=== PATIENT | male | born 1980 | race Caucasian/White ===

== ENCOUNTER 2023-12-11 09:37 | Day surgery (SDC) | payer BC, SELFPAY ==
[2023-12-11 09:42] VITALS: BP 141/93; PULSE 68; RESP 18; TEMP 36.4; O2SAT 100
[2023-12-11] MEDS: Lactated Ringers 1,000 ML 80 ML IV (09:56)
--- NOTE | 2023-12-11 10:02 | W.ANESPRE ---
General Info Date of Service Date Performed: 12/11/23 Height: 5 ft 11 in Weight: 108.3 kg Body Mass Index (BMI): 33.3 Surgical Procedure: Operation Date: 12/11/23 11:50 Proposed Procedure Side Surgeon pooja Rose MD Meds Allergies and Home Medications Allergies Allergy/AdvReac Type Severity Reaction Status Date / Time bupropion Allergy Intermediate severe Verified 12/05/23 07:45 emotional lability Home Medication Medication Instructions Recorded bisacodyl 5 mg tablet,delayed 5 mg PO ONCE #4 tabs 12/06/23 release (Dulcolax (bisacodyl)) polyethylene glycol 3350 17 17 g PO ONCE #238 grams 12/06/23 gram/dose oral powder ibuprofen 200 mg tablet (Advil) 600 mg PO Q6H 12/10/23 magnesium 100 mg capsule 100 mg PO DAILY 12/10/23 melatonin 1 mg tablet 1 mg PO DAILY 12/10/23 multivitamin (Daily Value tablet) 1 tab PO DAILY 12/10/23 Current Visit Medications: Current Medications Generic Name Dose Route Start Last Admin Trade Name Freq PRN Reason Stop Dose Admin Ringer's Solution 1,000 mls @ 80 mls/hr 12/11/23 06:00 12/11/23 09:56 IV 01/09/24 23:59 80 mls/hr INFUSION GIOVANNI Administration IV Miscellaneous Supplies 1 each 12/11/23 06:00 Iv Access IV 01/09/24 23:59 DIRECTED GIOVANNI Sodium Chloride 0 ml 12/11/23 06:00 Normal Saline Flush 10 Ml Syr IV 01/09/24 23:59 PRN PRN Sodium Chloride 0 ml 12/11/23 06:00 Normal Saline 10 Ml Vial IJ 01/09/24 23:59 DIRECTED PRN Sterile Water 0 ml 12/11/23 06:00 Water,Injection,Sterile 10 Ml Vial IJ 01/09/24 23:59 DIRECTED PRN PFSH Active Problems Active Problems: Problem Status Onset Code Erectile dysfunction N52.9 Medical History Medical History Fracture of arm Left arm Low back pain Surgical History Surgical History Hx laparoscopic cholecystectomy Tobacco Smoking/Tobacco Use Status: Former Tobacco Use Alcohol Alcohol Intake: current Alcohol intake frequency: a few times a month Substance Use Substance use: Never Substance use type: does not use Vital Signs and Lab Results Vital Signs Most Recent Vital Signs in EMR: Most Recent Vital Signs Temp Pulse Resp BP Pulse Ox 36.4 C L 68 18 141/93 H 100 12/11/23 09:42 12/11/23 09:42 12/11/23 09:42 12/11/23 09:42 12/11/23 09:42 Lab Results Blood Type / Crossmatch: No Data to Display Complete Blood Count: No Data to Display Complete Metabolic Panel: No Data to Display Liver Function Panel: No Data to Display Coagulation Panel: No Data to Display Cardiac Panel: No Data to Display Arterial Blood Gas: No Data to Display Venous Blood Gas: No Data to Display Pancreas Panel: No Data to Display Thyroid Panel: No Data to Display Infectious Disease: No Data to Display Blood Cultures: No Data to Display Toxicology Panel: No Data to Display Anesthesia Assessment and Plan Anesthesia History Personal History: No History of Anesthesia Complications Family History: No Family History of Anesthesia Complications Exercise Tolerance Exercise Tolerance: Metabolic Equivalents>4 Pertinent Negatives Pertinent Negatives: No Symptoms of GERD Cardiac & Pulmonary Exam Cardiac Exam: Normal S1/S2 Heart Sounds Pulmonary Exam: Clear Bilateral Breath Sounds Implantable Cardiac Device Does patient have a Pacemaker or an ICD?: No Airway Exam Known Difficult Airway: No Mallampati Class: 2 Mouth Opening: Normal (> 3cm) Thyromental Distance: Greater than 3 cm Neck Range of Motion: Full ROM Neck Circumference: Normal Teeth Condition: Normal Dentition ASA Classification ASA Score: ASA 2 Emergency Case?: No NPO Status NPO Status: NPO Clears >2 hours, Solids >8 hours Anesthesia Plan Resuscitation Status: Full Code Anesthesia Technique: General Anesthesia Airway Planned: Natural Airway Monitors Used: Standard Monitors
[2023-12-11 10:03] VITALS: BMI 33.3
--- NOTE | 2023-12-11 11:04 | BOWEL_PTH ---
PATIENT: John Nobles LOC: [facility] U#:[id number] AGE/SX: 43/M ROOM: RE12/11/[address]: Jarrod Rose : 1980 BED: DIS: 12/11/2023 SPEC #: [id number] RECD: 12/11/23 11:37 STATUS: BRIAN RE #: [id number] KENNEY: 12/11/23 11:[address]: Jarrod Rose DEPT: Surgical Specimen RECD BY: Jessie Gonzáles ENTERED: 12/11/23 11:37 SP TYPE: Bowel OTHR DR: Donald Toscano Tissues: 1 - BIOPSY BOWEL 2 - BIOPSY BOWEL Procedures: GROSS AND MICRO LEVEL 4 Comments: [id number]
[2023-12-11 11:11] VITALS: BP 106/69; PULSE 64; RESP 16; TEMP 36.5; O2SAT 96
--- NOTE | 2023-12-11 11:14 | W.ANESPOSTOP ---
Postoperative Evaluation Date, Time and Location Date Performed: 12/11/23 Time Performed: 11:14 Patient Location: Day Surgery Unit Vital Signs Most Recent Imported Vital Signs: Most Recent Vital Signs Temp Pulse Resp BP Pulse Ox 36.5 C 64 16 106/69 96 12/11/23 11:11 12/11/23 11:11 12/11/23 11:11 12/11/23 11:11 12/11/23 11:11 Pain Score Most Recent Pain Score: Most Recent Pain Score Pain Level 0 12/11/23 11:11 Assessment Mental Status: Awake (Alert & Oriented to Patient Baseline) Airway and Respiratory Function: Patent airway with normal (patient baseline) respiratory exam Cardiovascular Function: Hemodynamically Stable Hydration Status: Adequately Hydrated Nausea & Vomiting: No Nausea or Vomiting Pain: Pt. Denies Any Pain Peripheral Nerve Block: Patient did not receive a nerve block
--- NOTE | 2023-12-11 11:26 | COLE_ITS ---
Date of service: 12/11/23 Time of Service: 11:27 Colonoscopy Report Procedure Description: PROCEDURES PERFORMED: 1. Colonoscopy with cold forceps polypectomy x 2 PREOPERATIVE DIAGNOSIS: Screening colonoscopy POSTOPERATIVE DIAGNOSIS: Hyperplastic colorectal polyps, grade 1 internal h emorrhoids SURGEON: Sendy Rose MD INDICATION for procedure: The patient is a 43-year-old man due for screening. No symptoms. No family history of colon cancer. FINDINGS: The terminal ileum was normal. No diverticular disease. In the distal sigmoid and the proximal rectum are multiple, flat, hyperplastic?appearing polyps. I removed 2 with cold forceps technique to confirm benign histology. Grade 1 internal hemorrhoids noted on retroflexion. SURVEILLANCE interval/FOLLOW-UP: 10 years SPECIMENS: yes EBL: Minimal COMPLICATIONS: None QUALITY of prep: Excellent Procedure in detail: The patient gave written consent and was in agreement with the indications, the potential risks as well as the benefits of the procedure. They taken to the endoscopy suite and laid in the left lateral decubitus position. A timeout was performed and anesthesia was administered which was tolerated well. I started the procedure. Digital rectal and visual examination was performed and grossly within normal limits. A well-lubricated flexible colonoscope was then introduced and passed without any notable difficulty all the way to the cecum identified by the ileocecal valve and the appendiceal orifice. The terminal ileum was intubated and looked normal. The scope was then slowly withdrawn with the above-noted findings. The patient tolerated the procedure well and was taken to the PACU in hemodynamically stable condition.
--- NOTE | 2023-12-11 11:28 | W.PM.DSUDISC ---
Date of service: 12/11/23 Time of Service: 11:28 Discharge Plan Disposition Patient Disposition: Home Condition: Good Discharge Details Attending Provider: Jarrod Rose Primary Care Provider: Donald Toscano Home Meds and New Rx's Prescriptions: No Action bisacodyl [Dulcolax (bisacodyl)] 5 mg tablet,delayed release (DR/EC) 5 mg PO ONCE Qty: 4 0RF Rx Instructions: Take per colonoscopy instructions provided by ordering providers office polyethylene glycol 3350 17 gram/dose powder 17 g PO ONCE Qty: 238 0RF Rx Instructions: Take per colonoscopy instructions provided by ordering providers office ibuprofen [Advil] 200 mg tablet 600 mg PO Q6H Patient Comments: 200mg to 600mg PRN magnesium 100 mg capsule 100 mg PO DAILY Patient Comments: 143mg dose melatonin 1 mg tablet 1 mg PO DAILY multivitamin [Daily Value] Tablet 1 tab PO DAILY Discharge Instructions Additional Instructions: FINDINGS: The colon and rectum appear healthy. Some small polyps were removed today but these are almost certainly completely benign and do not give you any risk. You will likely need to repeat a colonoscopy in 10 years. Minimal/mild internal hemorrhoid disease was found today. This is extremely common, benign and nothing needs to be done about it. Stand Alone Forms: Colonoscopy Post Instructions Activity:: Activity as Tolerated Diet:: As Tolerated
[2023-12-11 11:40] VITALS: BP 123/86; PULSE 70; RESP 18; TEMP 36.6; O2SAT 97
== END 2023-12-11 12:00 | disposition home or self-care (01) ==
PROVIDERS: PCP Family Medicine; Visit Provider Student in an Organized Health Care Education/Training Program
PROC: 0DJD8ZZ Inspection of Lower Intestinal Tract, Via Natural or Artificial Opening Endoscopic (ICD-10-PCS; CPT 45378; principal; 2023-12-11 11:45)
DX: Z12.11 Encounter for screening for malignant neoplasm of colon (principal); K63.5 Polyp of colon; K64.0 First degree hemorrhoids; K62.89 Other specified diseases of anus and rectum; K63.89 Other specified diseases of intestine
CPT/HCPCS: 45380; 00123; 88305; J2001; J2704